=== PATIENT | female | born 1930 | race Caucasian/White ===

== ENCOUNTER 2016-07-29 10:49 | Outpatient (CLI) | payer MEDICARE, OTHER ==
[~2016-07-29] VITALS: Ht 162.6 cm; Wt 72.8 kg
[2016-07-29] VITALS (7 sets, daily range): BP systolic 122–145; BP diastolic 62–77; PULSE 17–74; RESP 15–20; TEMP 97.6–98; O2SAT 95–98; Ht 162.6 cm; Wt 72.8 kg
[~2016-07-29 10:49] MED LIST: ACET-732 PO; ASPI-558 PO; DILT240C61 PO; DIPH-343 PO; ESOM40CA24 PO; ISOS30TA53 PO; METO-107 PO; MULT-806 PO; POTA20TA69 PO; SIMV20TA89 PO; SPIR25TA4 PO; [UNRECOGNIZED DRUG - CODE] BOTH EYES
--- NOTE | 2016-07-29 11:00 | NUR ---
Admit Pt admitted to [facility] for procedure. Pt ambulatory with crutch.
[2016-07-29 12:37] LABS: INR 1.06 (0.76-1.04); PROTHROMBIN TIME 11.6 SEC (9.31-12.49)
[2016-07-29] MEDS ORDERED: IOHEXOL 300 MG/ML 50ml INJECTION ONE (13:23)
--- NOTE | 2016-07-29 13:30 | NUR ---
Off unit to Imaging for myelogram at this time via wc.
--- NOTE | 2016-07-29 14:05 | NUR ---
Return Pt returned to room at this time. C/O numbness in legs from waist down. Move spontaneously and at command. Will continue to monitor.
--- NOTE | 2016-07-29 15:14 | NUR ---
CM CM IN TO VISIT WITH PT. SHE IS ALERT AND ORIENTED. HER SPOUSE IS PRESENT. PT PLANS TO DC HOME. SHE DENIES DC NEEDS. LACE SCORE IS 3. PT IS GIVEN CM CONTACT INFORMATION. Addendum: 07/29/16 at 1515 by FACUNDO MENENDEZ RN Amended: Links added.
--- NOTE | 2016-07-29 16:20 | NUR ---
DISCHARGE PT DISCHARGED TO HOME IN GOOD CONDITION. DISCHARGE INSTRUCTIONS REVIEWED. PT'S QUESTIONS ANSWERED AND PT VERBALIZED. PACKET SENT WITH PT. EXITED BY WHEELCHAIR THROUGH ED ENTRANCE ACCOMPANIED BY AND NURSING STAFF.
--- NOTE | 2016-07-29 16:39 | DI ---
INDICATION: ITS.REASON: BACK PAIN Ordering physician:Fredy Franklin APRN Procedure:MYELOGRAM LUMBAR INJECTION FOR CT MYELOGRAM: The procedure including the benefits, risks, and alternatives were explained in detail to the patient. All of their questions were answered. She stated that she understood and wished to proceed. Informed consent was obtained. A preprocedural timeout was performed to confirm the correct patient and procedure. Using sterile technique, local Xylocaine anesthesia, and fluoroscopic guidance throughout, a 22 G spinal needle was advanced from a posterior approach into the subarachnoid space at the L3 level. A fluoroscopic image was then obtained and archived. Removal of the stylet showed clear colorless CSF. 13 cc of Omnipaque 300 was slowly instilled within the intrathecal space. The needle was then removed. Fluoroscopic images were then obtained. Following this, the patient was transferred to the CT department for their scan. Please see the separate CT report. Impression: Successful intrathecal injection of contrast for a CT lumbar myelogram. Fluoroscopy dose: 21.36 mGy (Cumulative air kerma) Palomo Fair RPA/DONNY performed this under my personal supervision. .
--- NOTE | 2016-07-29 17:36 | DI ---
Indication: ITS.REASON: M54.5 LOW BACK PAIN PROCEDURE: CT MYELOGRAM LUMBAR SPINE: Encounter: Initial Comparison: None Technique: Axial CT imaging through the lumbar spine was performed after the administration of intrathecal contrast. The myelogram injection is described in a separate procedural report. Coronal and sagittal two-dimensional reformats. Automated Exposure Control and Iterative Reconstruction dose reducing techniques were utilized. 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 Posterior spinal fusion hardware seen at the L2-L3 levels with pedicle screws and rods. There is also epidural stimulator leads extending to the upper aspect of the study in the lower thoracic spine. There is an age undetermined inferior endplate compression fracture of L1. The remaining vertebral body heights are maintained. Evidence of anterior fusion also at the L3-L4 and L4-L5 level with interbody bone grafts. Posterior decompression extending from L2 through L4. There is good opacification of the central spinal canal with myelographic contrast. Atelectasis in the lung bases with scarring. Paraspinal soft tissues show no acute findings. Segmental analysis: T11-T12: Normal T12-L1: Normal L1-L2: Small central disk bulge without central canal stenosis. No significant neural foraminal stenosis. L2-L3: Moderate disk height loss. Posterior decompression. No significant neural foraminal stenosis. L3-L4: There is a loculated area of CSF seen at the ventral aspect of the thecal sac causing mass effect and compression of the sac and traversing nerve roots. This measures 1.7 cm craniocaudally and 0.8 cm anteroposteriorly on sagittal image #37. There is no disk herniation. Posterior decompression is noted. No significant neural foraminal stenosis. L4-L5: Posterior decompression. No focal disk herniation. Degenerative facet disease contributing to mild right neural foraminal narrowing. No significant left foraminal stenosis. L5-S1: Disk desiccation and height loss with mild bulging but no central canal stenosis. Degenerative facet change with moderate left neural foraminal stenosis. Impression: Degenerative and postoperative changes as above. 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 .
--- NOTE | 2016-08-02 13:33 | NUR ---
CM CM PLACED FOLLOW UP DISCHARGE CALL. PT REPORTS SHE IS DOING GOOD. SHE DENIES NEEDS OR CONCERNS.
== END 2016-07-29 16:20 | disposition home or self-care (01) ==
LOC: IMA.BED 10:49 → SRG 10:51 → IMA.BED 16:20
PROVIDERS: ATTEND Radiology Diagnostic Radiology
DX: M47.896 Other spondylosis, lumbar region (principal); M47.897 Other spondylosis, lumbosacral region; M51.26 Other intervertebral disc displacement, lumbar region; M51.37 Other intervertebral disc degeneration, lumbosacral region; R93.8 Abnormal findings on diagnostic imaging of other specified body structures; Z98.890 Other specified postprocedural states; M54.16 Radiculopathy, lumbar region; Z51.81 Encounter for therapeutic drug level monitoring
CPT/HCPCS: 36415; 62304; 72132; 85049; 85610; Q9967